=== PATIENT | female | born 1995 | race Two or more races ===

== ENCOUNTER 2023-07-27 09:51 | Emergency (ER) | payer OTHER ==
[~2023-07-27] VITALS: Ht 157.5 cm; Wt 74.3 kg
[2023-07-27 11:07] VITALS: BP 137/111; PULSE 67; RESP 18; O2SAT 98
== END 2023-07-27 11:00 | disposition home or self-care (01) ==
LOC: ER 09:51
DX: S09.8XXA Other specified injuries of head, initial encounter (principal); F07.81 Postconcussional syndrome; R51.9 Headache, unspecified; R42 Dizziness and giddiness; M54.2 Cervicalgia; R11.2 Nausea with vomiting, unspecified; F12.10 Cannabis abuse, uncomplicated; W18.39XA Other fall on same level, initial encounter; Y93.89 Activity, other specified; Y92.090 Kitchen in other non-institutional residence as the place of occurrence of the external cause; Y99.8 Other external cause status
CPT/HCPCS: 70450